=== PATIENT | male | born 1940 | race Asian ===

== ENCOUNTER 2017-01-17 14:42 | Emergency (ER) | payer BC ==
[~2017-01-17 14:42] MED LIST: AT25 PO; ATARAX50B PO; C5; KAPIDEX60 MG PO; LEXAPRO10 PO; MULTIVITAMI1 PO; PCET PO; PREV15 PO
== END 2017-01-17 15:05 | disposition home or self-care (01) ==
LOC: ER 14:42
DX: L29.9 Pruritus, unspecified (principal); Z96.652 Presence of left artificial knee joint; Z79.01 Long term (current) use of anticoagulants; Z79.899 Other long term (current) drug therapy
CPT/HCPCS: 96372; 99283; J2930